=== PATIENT | male | born 1995 | race Caucasian/White ===

== ENCOUNTER 2019-05-09 15:02 | Emergency (ER) | payer OTHER ==
[~2019-05-09] VITALS: Ht 182.9 cm; Wt 109.1 kg
[2019-05-09 15:53] VITALS: BP 155/88
== END 2019-05-09 15:58 | disposition home or self-care (01) ==
LOC: M ED 15:02
DX: H00.014 Hordeolum externum left upper eyelid (principal); I25.10 Atherosclerotic heart disease of native coronary artery without angina pectoris